=== PATIENT | female | born 1955 ===

== ENCOUNTER 2017-06-02 09:42 | Emergency (ER) | payer OTHER ==
[2017-06-02 09:57] VITALS: O2SAT 99
[2017-06-02] MEDS ORDERED: Acetaminophen-Codeine 300/30 mg Tab PO STA (10:36)
--- NOTE | 2017-06-02 10:42 | C.PDOC ---
History Of Present Illness 62yo female, right hand dominant, presents to ED for evaluation of atraumatic right shoulder pain, for the past month and worsening over the last two weeks. She reports taking Motrin with temporary relief of pain. She denies any fever, chills, chest pain, shortness of breath, injuries to her right shoulder. No other complaints. Time Seen by Provider: 06/02/17 10:07 Chief Complaint (Nursing): Upper Extremity Problem/Injury History Per: Patient History/Exam Limitations: no limitations Onset/Duration Of Symptoms: Persistent, Worse Since (2 weeks) Current Symptoms Are (Timing): Still Present Quality: "Pain" Past Medical History Reviewed: Historical Data, Nursing Documentation, Vital Signs Vital Signs: Last Vital Signs Temp 97.9 F 06/02/17 09:53 Pulse 87 06/02/17 09:53 Resp 20 06/02/17 09:53 BP 113/73 06/02/17 09:53 Pulse Ox 99 06/02/17 11:10 Surgical History: No Surg Hx Family History: States: No Known Family Hx, Unknown Family Hx - Social History Hx Tobacco Use: Yes Hx Alcohol Use: Yes Hx Substance Use: No - Immunization History Hx Influenza Vaccination: No Hx Pneumococcal Vaccination: No Review Of Systems Constitutional: Negative for: Fever, Chills Cardiovascular: Negative for: Chest Pain Respiratory: Negative for: Shortness of Breath Musculoskeletal: Positive for: Shoulder Pain (right) Physical Exam - Physical Exam Appears: Non-toxic Skin: Normal Color Neck: Supple Extremity: Tenderness (tendernss to right anterior shoulder, worse with movement ), No Deformity Pulses: Right Brachial: Normal, Left Radial: Normal ED Course And Treatment ECG: Interpreted By Me, Viewed By Me Interpretation Of ECG: Normal sinus rhythm, normal intervals, normal axis, sinus arrhythmia. Rate From EC O2 Sat by Pulse Oximetry: 99 (RA) Pulse Ox Interpretation: Normal Medical Decision Making Medical Decision Making: Impression: Right shoulder pain Plan: -- XR Right shoulder -- Naprosyn -- Tylenol/codeine Time: 1111 XR as read by provider indicates arthritic changes, no fractures or bony lesions noted. Patient to be discharged home and instructed to follow up in the clinic. Arm sling provided as well. Disposition Counseled Patient/Family Regarding: Studies Performed, Diagnosis, Need For Followup, Rx Given - Disposition Referrals: [facility] [Outside] [facility] [place] [Outside] Disposition: HOME/ ROUTINE Disposition Time: 11:09 Condition: STABLE Additional Instructions: follow up with noam in 2 days call to make an appointment take pain medications as needed use sling sparingly as needed when pain is present return to hospital if symptoms worsens or progress Prescriptions: Acetaminophen/Codeine [Tylenol/Codeine 300 MG/30 MG] 1 tab PO Q6H PRN #12 tab PRN Reason: Pain, Severe (8-10) Naproxen [Naprosyn] 500 mg PO BID PRN #16 tab PRN Reason: Pain, Moderate (4-7) Instructions: Shoulder Sprain (ED), Shoulder Pain (ED) Forms: [employer] (Serbian), Gen Discharge Inst Panamanian, [employer] / [employer] (Panamanian) Print Language: FAROESE - Clinical Impression Clinical Impression: Arthralgia - Scribe Statement The provider has reviewed the documentation as recorded by the Bao Chavez Provider Attestation: All medical record entries made by the Bao were at my direction and personally dictated by me. I have reviewed the chart and agree that the record accurately reflects my personal performance of the history, physical exam, medical decision making, and the department course for this patient. I have also personally directed, reviewed, and agree with the discharge instructions and disposition.
[2017-06-02] MEDS ORDERED: Acetaminophen-Codeine 300/30 mg Tab PO ONE (10:58)
[2017-06-02 11:34] VITALS: BP 116/74; PULSE 60; RESP 16; TEMP 97.8
--- NOTE | 2017-06-02 16:32 | RAD ---
PROCEDURE: Radiographs of the Right Shoulder HISTORY: pain COMPARISON: No prior. FINDINGS: BONES: . No fracture. JOINTS: . 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 SOFT TISSUES: Normal. OTHER FINDINGS: None. IMPRESSION: Arthrosis. No fracture or lytic lesion
--- NOTE | 2017-06-05 09:37 | CARD ---
APPROVED REPORT EKG Measurement Heart [id number] <Conclusion> Normal sinus rhythm with sinus arrhythmia Normal ECG
== END 2017-06-02 11:35 | disposition home or self-care (01) ==
LOC: C.ER 09:42
DX: M25.511 Pain in right shoulder (principal); Z87.891 Personal history of nicotine dependence